=== PATIENT | male | born 1980 | race African-American/Black ===

== ENCOUNTER 2017-02-26 00:34 | Emergency (ER) | payer OTHER ==
[~2017-02-26] VITALS: Ht 167.6 cm; Wt 72.6 kg
[2017-02-26] MEDS ORDERED: WATER FOR INJECTION,STERILE 10 ML ONE (00:51)
[2017-02-26] MEDS ORDERED: PANTOPRAZOLE 40 MG VIAL ONE (00:51)
[2017-02-26] MEDS ORDERED: IV SET PRIMARY 1 EA INFUS.SET MC ONE (00:52)
[2017-02-26] MEDS ORDERED: IV NS 0.9% 1,000 ML ONE (00:52)
[2017-02-26] MEDS ORDERED: PANTOPRAZOLE 40 MG VIAL IV ONE (01:00)
[2017-02-26] MEDS ORDERED: IV NS 0.9% 1,000 ML BAG IV ONE (01:00)
[2017-02-26 01:03] LABS: BASOPHILS % (AUTO) 0.3 % (0.0-2.0); EOSINOPHILS # (AUTO) 0.1 /CMM (0.0-0.7); EOSINOPHILS % (AUTO) 1.4 % (0.0-6.0); HEMATOCRIT 41 % (39-51); HEMOGLOBIN 14.1 g/dL (13.5-17.5); LYMPHOCYTES # (AUTO) 2.5 /CMM (0.8-4.8); LYMPHOCYTES % (AUTO) 38.6 % (20.0-44.0); MEAN CORPUSCULAR HEMOGLOBIN 28 PG (26.0-33.0); MEAN CORPUSCULAR HGB CONC 34 g/dl (31.0-36.0); MEAN CORPUSCULAR VOLUME 83 fL (80-96); MONOCYTES # (AUTO) 0.4 /CMM (0.1-1.30); MONOCYTES % (AUTO) 6.8 % (2.0-12.0); NEUTROPHILS # (AUTO) 3.4 /CMM (1.8-8.9); NEUTROPHILS % (AUTO) 52.9 % (43.0-81.0); PLATELET COUNT (AUTO) 212 /CMM (150-450); RDW COEFFICIENT OF VARIATION 13.8 (11.5-15.0); WHITE BLOOD COUNT (AUTO) 6.5 K/uL (4.3-11.0)
[2017-02-26 01:13] LABS: CALCIUM, SERUM 8.8 mg/dL (8.5-10.1)
[2017-02-26 01:17] LABS: INR 1.02 (0.87-1.13); PROTHROMBIN TIME 10.9 SECS (9.5-12.7)
[2017-02-26 01:19] LABS: ALBUMIN 3.9 g/dL (3.4-5.0); BILIRUBIN,DIRECT 0.1 mg/dL (0.0-0.2); BILIRUBIN,TOTAL 0.4 mg/dL (0.2-1.0); TOTAL PROTEIN, SERUM 7.6 g/dL (6.4-8.2)
[2017-02-26] MEDS ORDERED: oxyCODONE/APAP (5/325 MG) 1 UDTAB TABLET ONE (01:36)
[2017-02-26] MEDS ORDERED: POTASSIUM CHLORIDE 20 MEQ TAB.PRT.SR PO ONE ×2 (02:00→02:07)
[2017-02-26] MEDS ORDERED: oxyCODONE/APAP (5/325 MG) 1 UDTAB TABLET PO ONE (02:00)
[2017-02-26 03:08] VITALS: BP 113/72
== END 2017-02-26 03:10 | disposition home or self-care (01) ==
LOC: ER 00:37
DX: R10.30 Lower abdominal pain, unspecified (principal); K64.8 Other hemorrhoids; K92.1 Melena; Z87.442 Personal history of urinary calculi
CPT/HCPCS: 36415; 74176; 80048; 80076; 83690; 85025; 85730; 86850; 93005; 96361; 96374; 99285; A4606; C9113; J7030; Z7610

== ENCOUNTER 2019-06-18 03:42 | Emergency (ER) | payer MEDICAID, OTHER ==
[~2019-06-18] VITALS: Ht 165.1 cm; Wt 84.4 kg
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
[2019-06-18] MEDS ORDERED: IBUPROFEN 600 MG TABLET PO ONE ×2 (04:05→04:30)
[2019-06-18] MEDS ORDERED: NITROGLYCERIN PACKET 1 GM PACKET ONE (04:05)
[2019-06-18] MEDS ORDERED: ASPIRIN 81 MG TAB.CHEW ONE (04:06)
[2019-06-18 04:16] LABS: BASOPHILS % (AUTO) 0.2 % (0.0-2.0); EOSINOPHILS % (AUTO) 2.8 % (0.0-6.0); HEMATOCRIT 40 % (39-51); HEMOGLOBIN 13.6 g/dL (13.5-17.5); LYMPHOCYTES # (AUTO) 2.6 /CMM (0.8-4.8); LYMPHOCYTES % (AUTO) 36.2 % (20.0-44.0); MEAN CORPUSCULAR HGB CONC 34 g/dl (31.0-36.0); MEAN CORPUSCULAR VOLUME 86 fL (80-96); MONOCYTES # (AUTO) 0.6 /CMM (0.1-1.30); MONOCYTES % (AUTO) 7.6 % (2.0-12.0); NEUTROPHILS # (AUTO) 3.9 /CMM (1.8-8.9); NEUTROPHILS % (AUTO) 53.2 % (43.0-81.0); PLATELET COUNT (AUTO) 232 /CMM (150-450); RED BLOOD CELL COUNT(AUTO) 4.64 MIL/uL (4.5-6.0); WHITE BLOOD COUNT (AUTO) 7.2 K/uL (4.3-11.0)
[2019-06-18 04:24] LABS: CALCIUM, SERUM 9.5 mg/dL (8.5-10.1); CARBON DIOXIDE 28 mmol/L (21-32); CHLORIDE 103 mmol/L (98-107); GLUCOSE 90 mg/dL (74-106); POTASSIUM 3.7 mmol/L (3.5-5.1); SODIUM SERUM 137 mmol/L (136-145); UREA NITROGEN, BLOOD 15 mg/dL (7-18)
[2019-06-18] MEDS ORDERED: ASPIRIN 81 MG TAB.CHEW PO ONE (04:30)
[2019-06-18] MEDS ORDERED: NITROGLYCERIN PACKET 1 GM PACKET TD ONE (04:30)
[2019-06-18 04:36] LABS: ALANINE AMINOTRANSFERASE 37 U/L (12-78); ALBUMIN 3.7 g/dL (3.4-5.0); ALKALINE PHOSPHATASE 37 U/L (46-116); ASPARTATE AMINOTRANSFERASE 21 U/L (15-37); B-TYPE NATRIURETIC PEPTIDE 11 PG/ML (0-125); BILIRUBIN,DIRECT 0.1 mg/dL (0.0-0.2); BILIRUBIN,TOTAL 0.3 mg/dL (0.2-1.0); TOTAL PROTEIN, SERUM 7.3 g/dL (6.4-8.2)
--- NOTE | 2019-06-18 07:20 | NUR ---
ASSUME PT CARE. RESTING IN BED. ON MONITOR W/ STABLE VITALS. 2ND TROP DRAWN BY LAB. AWAITING RESULTS.
[2019-06-18 07:56] VITALS: BP 107/62
--- NOTE | 2019-06-18 07:56 | NUR ---
Patient discharged to home in stable condition. Written and verbal after care instructions given. Patient verbalizes understanding of instruction.
== END 2019-06-18 07:57 | disposition home or self-care (01) ==
LOC: ER 03:42
DX: R07.89 Other chest pain (principal); R10.13 Epigastric pain; F17.200 Nicotine dependence, unspecified, uncomplicated; Z98.890 Other specified postprocedural states
CPT/HCPCS: 36415; 71045-TC; 80048-TC; 80076-TC; 83880; 84484-TC; 85025-TC

== ENCOUNTER 2022-05-20 03:08 | Emergency (ER) | payer OTHER ==
[~2022-05-20] VITALS: Ht 170.2 cm; Wt 81.6 kg
[2022-05-20 03:24] VITALS: BP 142/106
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
--- NOTE | 2022-05-20 03:26 | NUR ---
DR. FRANCESCA WHITE AT PT'S BEDSIDE
[2022-05-20] MEDS ORDERED: IBUPROFEN 400 MG TABLET PO ONE (03:30)
[2022-05-20] MEDS ORDERED: IBUPROFEN 400 MG TABLET ONE (03:32)
--- NOTE | 2022-05-20 03:35 | NUR ---
Patient discharged to home in stable condition. Written and ve rbal after care instructions given. Patient verbalizes understanding of instruction. pt ambulatory with a steady gait
== END 2022-05-20 03:35 | disposition home or self-care (01) ==
LOC: ER 03:10
DX: R51.9 Headache, unspecified (principal); M54.2 Cervicalgia; M54.50 Low back pain, unspecified; Z98.890 Other specified postprocedural states; V49.49XA Driver injured in collision with other motor vehicles in traffic accident, initial encounter; Y93.89 Activity, other specified; Y92.413 State road as the place of occurrence of the external cause; Y99.8 Other external cause status

== ENCOUNTER 2022-08-14 21:46 | Emergency (ER) | payer OTHER ==
--- NOTE | 2022-08-14 22:30 | NUR ---
PATIENT CALLED TO TRIAGE NO ANSWER
--- NOTE | 2022-08-14 22:54 | NUR ---
PATIENT NOT IN WAITING ROOM
== END 2022-08-14 22:56 | disposition left against medical advice (07) ==
LOC: ER 21:47
DX: Z53.21 Procedure and treatment not carried out due to patient leaving prior to being seen by health care provider (principal)